=== PATIENT | male | born 1960 | race Caucasian/White ===

== ENCOUNTER 2018-05-06 14:34 | Outpatient (AMBR) | payer OTHER, SELFPAY ==
--- NOTE | 2018-05-06 15:32 | PT.OIERPT ---
PT OP Initial Eval Patient Information Visit Reasons: pain Medical Diagnosis: M25.512 Treatment Dx #1: Left Shoulder Pain Start of Care: 05/06/18 Date of Onset: 6 months ago Initial Assessment Subjective Pt is a 58 y/o male c/o left shoulder pain (01/16) started several months ago. Pt mention that he doesn't recall a certain incident where he hurt his shoulder. Pt's recent xray showed mild to moderate OA in the joint. No MRI done thus far. Pt mention that he was on prednisone and ibuprofren for 2 wks which seems to help the pain. Pt's shoulder is feeling better. Pt still notice that it catches with certain motions. Pt still works and perform his ADLs with pain. Objective Left Shoulder AROM: all motions are WNL with pain towards end range flexion, abduction, and ER Left Shoulder MMTs: grossly 4/5 Left Scapula MMTs: grossly 3+/5 Special Test (-) Hawkin Timbo (-) Rent test (+) Speed Test (+) Bicep Load II test (+) grind test Palpation: TTP long head of bicep tendon Assessment Pt demonstrate left shoulder pain with normal mobility and strength. Pt's pain is non-mechanical and may relate to possible lesion within the labrum. At this time Pt will not benefit from physical therapy due to having normal shoulder mobility and strength. Recommend Pt to return to PCP for MRI to help rule in/out labrum and rotator cuff abnormality, thank you for your referrals. Short Term and Cushion Stuffer Goals 1) Eval and D/C 2) Follow up with PCP Treatment Plan Eval and D/C Frequency and Duration 1x Certification Dates: 05/06/18 to 08/05/18 Office Procedures PT Procedures PT Date of Service: 05/06/18 OP PT Eval Mod Complex 30 minutes: Yes
--- NOTE | 2018-05-06 16:53 | PTNOTE_ITS ---
PT OP Initial Eval Patient Information Visit Reasons: pain Medical Diagnosis: M25.512 Treatment Dx #1: Left Shoulder Pain Start of Care: 05/06/18 Date of Onset: 6 months ago Initial Assessment Subjective Pt is a 58 y/o male c/o left shoulder pain (01/16) started several months ago. Pt mention that he doesn't recall a certain incident where he hurt his shoulder. Pt's recent xray showed mild to moderate OA in the joint. No MRI done thus far. Pt mention that he was on prednisone and ibuprofren for 2 wks which seems to help the pain. Pt's shoulder is feeling better. Pt still notice that it catches with certain motions. Pt still works and perform his ADLs with pain. Objective Left Shoulder AROM: all motions are WNL with pain towards end range flexion, abduction, and ER Left Shoulder MMTs: grossly 4/5 Left Scapula MMTs: grossly 3+/5 Special Test (-) Hawkin Timbo (-) Rent test (+) Speed Test (+) Bicep Load II test (+) grind test Palpation: TTP long head of bicep tendon Assessment Pt demonstrate left shoulder pain with normal mobility and strength. Pt's pain is non-mechanical and may relate to possible lesion within the labrum. At this time Pt will not benefit from physical therapy due to having normal shoulder mobility and strength. Recommend Pt to return to PCP for MRI to help rule in/ out labrum and rotator cuff abnormality, thank you for your referrals. Short Term and Detention Goals 1) Eval and D/C 2) Follow up with PCP Treatment Plan Eval and D/C Frequency and Duration 1x Certification Dates: 05/06/18 to 08/05/18 Office Procedures PT Procedures PT Date of Service: 05/06/18 OP PT Eval Mod Complex 30 minutes: Yes
== END 2018-05-08 23:59 | disposition home or self-care (01) ==
PROVIDERS: PCP Nurse Practitioner Family; Referring Provider Nurse Practitioner Family; Visit Provider Nurse Practitioner Family
DX: M25.512 Pain in left shoulder (principal)
CPT/HCPCS: 97162